=== PATIENT | male | born 1955 | race Caucasian/White ===

== ENCOUNTER 2017-09-18 07:47 | Emergency (ER) | payer BC ==
[2017-09-18 08:11] VITALS: BP 127/68
--- NOTE | 2017-09-18 08:55 | UC ---
Respiratory Complaint HPI - HPI Summary HPI Summary: Patient c/o dry cough after cold for the past 2 weeks. He sometimes has felt chest wheezing at night, states that during the day he feels well and does not have any shortness of breath. Denies any environmental changes at home, same detergents, no new rugs or animals. Denies fever or discharge. - History of Current Complaint Chief Complaint: UCGeneralIllness Stated Complaint: CHEST CONGESTION Time Seen by Provider: 09/18/17 08:45 Hx Obtained From: Patient Onset/Duration: Gradual Onset, Lasting Weeks Timing: Intermittent Episodes Severity Initially: Mild Severity Currently: Moderate Pain Intensity: 0 Aggravating Factors: Recumbent Position Alleviating Factors: Nothing Associated Signs And Symptoms: Positive: Wheezing, Nasal Congestion - Risk Factors Pulmonary Embolism Risk Factors: Negative Cardiac Risk Factors: Hypertension, Elevated Lipids Pseudomonas Risk Factors: Negative Tuberculosis Risk Factors: Negative - Allergies/Home Medications Allergies/Adverse Reactions: Allergies Allergy/AdvReac Type Severity Reaction Status Date / Time niacin Allergy Dizziness Verified 09/18/17 08:01 nifedipine Allergy Dizziness Verified 09/18/17 08:01 iv iodine Allergy Severe Rash Uncoded 03/18/17 07:29 omnipaque Allergy Rash Uncoded 03/18/17 07:29 Home Medications: Home Medications Propranolol TAB* [Inderal TAB*] 80 mg PO BID 09/18/17 [History Confirmed ] Simvastatin [Zocor] 40 mg PO DAILY 09/18/17 [History Confirmed 09/18/17] Telmisartan/Hydrochlorothiazid [Telmisartan-Hctz 80-25 mg Tab] 1 tab PO DAILY [History Confirmed 09/18/17] PMH/Surg Hx/FS Hx/Imm Hx Previously Healthy: Yes Endocrine History: Dyslipidemia Cardiovascular History: Hypertension Other History Of: Negative For: Anticoagulant Therapy - Surgical History Surgical History: Yes Surgery Procedure, Year, and Place: ureter repair 1988 strong. hernia repair [facility] [place] 2009. 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 [facility] [place] - Social History Alcohol Use: None Substance Use Type: None Smoking Status (MU): Never Smoked Tobacco Review of Systems Constitutional: Negative Respiratory: Shortness Of Breath, Cough All Other Systems Reviewed And Are Negative: Yes Physical Exam Triage Information Reviewed: Yes Appearance: Well-Appearing, Obese Vital Signs: Initial Vital Signs Temp 97 F 09/18/17 08:05 Pulse 57 09/18/17 08:05 Resp 18 09/18/17 08:05 BP 127/68 09/18/17 08:05 Pulse Ox 98 09/18/17 08:05 Vital Signs Reviewed: Yes Eyes: Positive: Conjunctiva Clear ENT: Positive: Hearing grossly normal, Pharynx normal, TMs normal, Uvula midline Neck: Positive: Supple, Nontender, No Lymphadenopathy Respiratory: Positive: Chest non-tender, Lungs clear, Normal breath sounds, No respiratory distress Cardiovascular: Positive: RRR, No Murmur, Pulses Normal, Brisk Capillary Refill Abdomen Description: Positive: Nontender, No Organomegaly, Soft Bowel Sounds: Positive: Present - occasional end espiratory wheezing UC Diagnostic Evaluation - Laboratory O2 Sat by Pulse Oximetry: 98 Respiratory Course/Dx - Course Course Of Treatment: Bronchitis, reactive airway disease. Start flovent bid for 7 to 10 days. Follow up with PCP, continue oral hydration - Differential Dx/Diagnosis Provider Diagnoses: Reactive Airway Disease Discharge - Sign-Out/Discharge Documenting (check all that apply): Discharge - Discharge Plan Condition: Stable Disposition: HOME Prescriptions: Fluticasone DISKUS 100 MCG(NF) [Flovent Diskus 100 MCG(NF)] 1 puff INH BID 10 Days #1 diskus Patient Education Materials: Reactive Airways Disease (ED) Referrals: Faustino Jean-Baptiste MD [Primary Care Provider] - - Billing Disposition and Condition Condition: STABLE Disposition: HOME
== END 2017-09-18 09:00 | disposition home or self-care (01) ==
LOC: UCEAST 07:47
DX: J45.909 Unspecified asthma, uncomplicated (principal); E78.5 Hyperlipidemia, unspecified; I10 Essential (primary) hypertension; Z88.8 Allergy status to other drugs, medicaments and biological substances
CPT/HCPCS: 99212; G0463

== ENCOUNTER 2019-04-10 12:24 | Emergency (ER) | payer BC ==
[2019-04-10 12:40] VITALS: BP 137/80
--- NOTE | 2019-04-10 12:45 | UC ---
Skin Complaint HPI - HPI Summary HPI Summary: 64 yo male presents with LEFT finger pain. He tells me that over the last 5 days he has noticed redness, swelling, and pain to his left middle finger near the nail. Has been soaking. Denies injury or fevers. - History of Current Complaint Chief Complaint: UCSkin Time Seen by Provider: 04/10/19 12:45 Stated Complaint: SWOLLEN FINGER Hx Obtained From: Patient Onset/Duration: Gradual Onset Onset Severity: Mild Current Severity: Moderate Pain Intensity: 6 Pain Scale Used: 0-10 Numeric - Allergy/Home Medications Allergies/Adverse Reactions: Allergies Allergy/AdvReac Type Severity Reaction Status Date / Time niacin Allergy Dizziness Verified 04/10/19 12:40 nifedipine Allergy Dizziness Verified 04/10/19 12:40 iv iodine Allergy Severe Rash Uncoded 04/10/19 12:40 omnipaque Allergy Rash Uncoded 04/10/19 12:40 Home Medications: Home Medications Acetaminophen 650 mg PO ONCE PRN 04/10/19 [History Confirmed 04/10/19] PMH/Surg Hx/FS Hx/Imm Hx Endocrine History: Dyslipidemia Cardiovascular History: Hypertension Other History Of: Negative For: Anticoagulant Therapy - Surgical History Surgical History: Yes Surgery Procedure, Year, and Place: ureter repair 1988. [place] [facility] 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 [facility] [place] Family History Known Family History: Positive: Hypertension - Social History Occupation: Employed Full-time Lives: With Family Alcohol Use: None Substance Use Type: None Smoking Status (MU): Never Smoked Tobacco Review of Systems All Other Systems Reviewed And Are Negative: No Constitutional: Positive: Negative Skin: Positive: Other - Red swollen finger Respiratory: Positive: Negative Cardiovascular: Positive: Negative Neurovascular: Positive: Negative Neurological: Positive: Negative Psychological: Positive: Negative Physical Exam - Summary Physical Exam Summary: GENERAL: NAD. WDWN. No pain distress. SKIN: LEFT MIDDLE FINGER: Distal aspect near the ulnar nail/skin fold there is moderate edema and erythema with TTP. Central white head. No drainage or bleeding or streaking. CHEST: No accessory muscle use. Breathing comfortably and in no distress. CV: Pulses intact. Cap refill <2seconds NEURO: Alert. PSYCH: Age appropriate behavior. Triage Information Reviewed: Yes Vital Signs: Initial Vital Signs Temp 97.9 F 04/10/19 12:36 Pulse 58 04/10/19 12:36 Resp 18 04/10/19 12:36 BP 137/80 04/10/19 12:36 Pulse Ox 98 04/10/19 12:36 Vital Signs Reviewed: Yes Procedures - Incision and Drainage Left Finger Anesthesia: Other - None Instrument(s): Needle - 22G Packing: Other - None Course/Dx - Course Course Of Treatment: The procedure was explained to the pt and all questions were answered. A time out was performed, witnessed, and signed. The area was cleansed with an alcohol pad. A 22G needle was used to mercy the central most part of the paronychia. Copious purulent yellow material was able to be expressed. Homeostasis achieved. The wound was bandaged with a band-aid . Pt tolerated procedure well. - Diagnoses Provider Diagnosis: Paronychia Discharge ED - Sign-Out/Discharge Documenting (check all that apply): Patient Departure All imaging exams completed and their final reports reviewed: No Studies - Discharge Plan Condition: Stable Disposition: HOME Prescriptions: Cephalexin CAP* [Keflex CAP*] 500 mg PO BID #10 cap Patient Education Materials: Paronychia (ED) Referrals: Westley Arias MD [Primary Care Provider] - Additional Instructions: If you develop a fever, shortness of breath, chest pain, new or worsening symptoms - please call your PCP or go to the ED immediately. Continue soaking your finger and change the band-aid daily until well healed ( likely 4-5 days) - Billing Disposition and Condition Condition: STABLE Disposition: Home
== END 2019-04-10 12:59 | disposition home or self-care (01) ==
LOC: UCEAST 12:24
DX: L03.012 Cellulitis of left finger (principal); I10 Essential (primary) hypertension; Z88.1 Allergy status to other antibiotic agents; Z88.8 Allergy status to other drugs, medicaments and biological substances
CPT/HCPCS: 10060; 99212; G0463